=== PATIENT | male | born 1940 | race Caucasian/White ===

== ENCOUNTER 2018-08-10 05:52 | Inpatient (IN) | payer OTHER ==
[~2018-08-10] VITALS: Ht 180.3 cm; Wt 85.9 kg
[2018-08-10] MEDS ORDERED: NITROGLYCERIN 0.4 MG SL TAB SL ONE ×2 (06:00→08:15)
[2018-08-10 06:57] LABS: Basophils # (auto) 0 uL; Basophils % (auto) 0.5 % (0.0-2.0); Eosinophils # (auto) 0.3 uL; Eosinophils % (auto) 4.1 % (0.0-7.0); Hematocrit 43.6 % (41.0-53.0); Hemoglobin 15.3 g/dL (13.5-17.5); Lymphocytes # (auto) 2.1 uL; Lymphocytes % (auto) 33.2 % (10.0-50.0); Mean Corpuscular Hemoglobin 30.3 pg (28.0-32.0); Mean Corpuscular Hgb Conc. 35.1 g/dL (32.0-36.0); Mean Corpuscular Volume 86.4 fL (80.0-100.0); Monocytes # (auto) 0.7 uL; Monocytes % (auto) 10.8 % (0.0-12.0); Neutrophils # (auto) 3.3 uL; Neutrophils % (auto) 51.4 % (37.0-80.0); Nucleated Red Blood Cells % 0.2 %; Platelet Count (auto) 196 10^3/uL (140-450); Red Blood Cells 5.05 10^6/uL (4.5-5.90); Red Cell Distribution Width 13.4 % (11.8-14.3); White Blood Cell 6.4 10^3/uL (4.4-10.8)
[2018-08-10] MEDS ORDERED: ASPirin 81 mg TAB PO ONE ×2 (07:00→10:30)
[2018-08-10] MEDS ORDERED: SODIUM CHLORIDE 0.9% 1,000 ML IV ONE (07:00)
[2018-08-10 07:12] LABS: Albumin 3.8 g/dL (3.4-5.0); BUN/Creatinine Ratio 24.8; Calcium 8.5 mg/dL (8.5-10.1); Magnesium 2.2 mg/dL (1.6-2.6); Potassium 4.3 mmol/L (3.5-5.1)
[2018-08-10 07:17] LABS: Bilirubin, Total 0.6 mg/dL (0.2-1.0)
[2018-08-10 07:39] LABS: INR 1.08 (0.9-1.15); Partial Thromboplastin Time 34.9 sec (23.78-33.04); Prothrombin Time 11.5 sec (9.27-12.13)
[2018-08-10] MEDS ORDERED: MORPHINE SULF INJ 2 MG/ML SYRINGE 1ML ONE (07:49)
[2018-08-10] MEDS ORDERED: ONDANSETRON HCL 4 MG/2 ML VIAL ONE (07:49)
[2018-08-10] MEDS ORDERED: MORPHINE SULF INJ 2 MG/ML SYRINGE 1ML IV ONE (08:00)
[2018-08-10] MEDS ORDERED: ONDANSETRON HCL 4 MG/2 ML VIAL IV ONE (08:00)
[2018-08-10 09:13] LABS: Urine Bacteria NONE SEEN /hpf (None Seen); Urine Blood Negative /uL (Negative); Urine Mucus FEW (None Seen); Urine Specific Gravity 1.022 (1.001-1.035); Urine WBC 1 /hpf (0 - 3)
[2018-08-10] MEDS ORDERED: SODIUM CHLORIDE 0.9% 1,000 ML IV SCH ×2 (10:05→13:45)
[2018-08-10] MEDS ORDERED: MORPHINE SULF INJ 2 MG/ML SYRINGE 1ML IV PRN ×2 (10:15)
[2018-08-10] MEDS ORDERED: TEMAZEPAM 15 MG CAP PO PRN (10:15)
[2018-08-10] MEDS ORDERED: PROMETHAZINE HCL 25 MG/ML 1ML IV PRN (10:15)
[2018-08-10] MEDS ORDERED: LACTULOSE 20Gm/30ML SOLN PO PRN (10:15)
[2018-08-10] MEDS ORDERED: ACETAMINOPHEN 500 MG TAB PO PRN (10:15)
[2018-08-10] MEDS ORDERED: LORazepam 0.5 MG TAB PO PRN (10:15)
[2018-08-10] MEDS ORDERED: HYDROcodone-ACET 5/325MG TAB PO PRN (10:15)
[2018-08-10] MEDS ORDERED: ENOXAPARIN SOD 40 MG/0.4 ML SYRINGE SC ONE (10:30)
[2018-08-10] MEDS ORDERED: METOPROLOL TARTRATE 25 MG TAB PO ONE (10:30)
[2018-08-10] MEDS ORDERED: PANTOPRAZOLE 40 MG TAB PO ONE (10:30)
[2018-08-10] MEDS ORDERED: NITROGLYCERIN 0.2MG/HR TOPICAL PATCH TD ONE (10:30)
[2018-08-10] MEDS: LOSARTAN POTASSIUM 50 MG TAB PO SCH (10:57)
[2018-08-10] MEDS ORDERED: METOPROLOL SUCCINATE XL 50 MG TAB PO SCH (11:00)
[2018-08-10] MEDS: FUROSEMIDE 20 MG TAB PO SCH (11:00)
[2018-08-10 17:00] VITALS: BP 125/67
[2018-08-10] MEDS: TAMSULOSIN HYDROCHLORIDE 0.4 MG CAP PO SCH (18:06)
[2018-08-10] MEDS ORDERED: APIX5TAB OR (18:36)
[2018-08-10] MEDS ORDERED: TAMS0.4C36 PO (18:36)
[2018-08-10] MEDS ORDERED: ISOS1TAB37 PO (18:36)
[2018-08-10] MEDS ORDERED: FURO40TA4 PO (18:36)
[2018-08-10] MEDS ORDERED: ROSU10TA16 PO (18:36)
[2018-08-10] MEDS ORDERED: ASPI-498 OR (18:36)
[2018-08-10] MEDS ORDERED: LOSA50TA26 PO (18:36)
[2018-08-10] MEDS ORDERED: METO25TA62 PO (18:36)
[2018-08-10 22:00] VITALS: BP 113/57
[2018-08-10] MEDS ORDERED: METOPROLOL TARTRATE 25 MG TAB PO SCH (22:00)
[2018-08-10] MEDS: APIXABAN 5 MG TAB PO SCH (23:13)
[2018-08-10] MEDS: ATORVASTATIN 20 MG TAB PO SCH (23:14)
[2018-08-11 05:00] VITALS: BP 118/67
[2018-08-11 07:10] LABS: Cholesterol 108 mg/dL (< 200); HDL Cholesterol 32 mg/dL (40-59); LDL Cholesterol 67 mg/dL (< 100); Triglycerides 188 mg/dL (< 150)
[2018-08-11] MEDS: NITROGLYCERIN 0.4 MG SL TAB SL PRN ×2 (07:16→09:10)
[2018-08-11 09:00] VITALS: BP 115/61
[2018-08-11] MEDS: APIXABAN 5 MG TAB PO SCH ×2 (09:46→22:08)
[2018-08-11] MEDS: NITROGLYCERIN 0.2MG/HR TOPICAL PATCH TD SCH (09:46)
[2018-08-11] MEDS: FUROSEMIDE 20 MG TAB PO SCH (09:47)
[2018-08-11] MEDS: PANTOPRAZOLE 40 MG TAB PO SCH (09:47)
[2018-08-11] MEDS: LOSARTAN POTASSIUM 50 MG TAB PO SCH (09:47)
[2018-08-11] MEDS: ASPirin 81 mg TAB PO SCH (09:47)
[2018-08-11] MEDS ORDERED: ENOXAPARIN SOD 40 MG/0.4 ML SYRINGE SC SCH (10:00)
[2018-08-11] MEDS ORDERED: IODIXANOL 320MG/ML 100ML BTL IV ONE (11:50)
[2018-08-11] MEDS ORDERED: LIDOCAINE 2%HCL (LOCAL ANESTH.) INJ 20ML MDV ONE (11:50)
[2018-08-11] MEDS ORDERED: ANGIOMAX 250 MG VIAL IV ONE (12:13)
[2018-08-11] MEDS ORDERED: SODIUM CHL 0.9% 0 ML ONE (12:13)
[2018-08-11] MEDS ORDERED: fentaNYL CITRATE 100 MCG/2 ML VL ONE (12:13)
[2018-08-11] MEDS ORDERED: MIDAZOLAM HCL 1MG/1ML-2 ML VIAL ONE (12:13)
[2018-08-11 14:00] VITALS: BP 120/63
[2018-08-11 17:00] VITALS: BP 134/69
[2018-08-11] MEDS: TAMSULOSIN HYDROCHLORIDE 0.4 MG CAP PO SCH (17:43)
[2018-08-11 22:00] VITALS: BP 128/66
[2018-08-11] MEDS: ATORVASTATIN 20 MG TAB PO SCH (22:08)
[2018-08-12 05:00] VITALS: BP 107/60
[2018-08-12] MEDS: NITROGLYCERIN 0.4 MG SL TAB SL PRN (07:26)
[2018-08-12 09:00] VITALS: BP 139/71
[2018-08-12] MEDS: PANTOPRAZOLE 40 MG TAB PO SCH (11:22)
[2018-08-12] MEDS: APIXABAN 5 MG TAB PO SCH (11:23)
[2018-08-12] MEDS: ASPirin 81 mg TAB PO SCH (11:23)
[2018-08-12] MEDS: NITROGLYCERIN 0.2MG/HR TOPICAL PATCH TD SCH (11:23)
[2018-08-12] MEDS: LOSARTAN POTASSIUM 50 MG TAB PO SCH (11:23)
[2018-08-12] MEDS: FUROSEMIDE 20 MG TAB PO SCH (11:24)
[2018-08-12 13:00] VITALS: BP 96/56
== END 2018-08-12 14:30 | disposition home or self-care (01) | DRG 287 ==
LOC: ER 05:56 → TELE 05:57 → TELE-CENTR 15:38
PROVIDERS: ADMIT Internal Medicine; ATTEND Internal Medicine
PROC: B2111ZZ Fluoroscopy of Multiple Coronary Arteries using Low Osmolar Contrast (ICD-10-PCS; principal; 2018-08-11)
PROC: B2151ZZ Fluoroscopy of Left Heart using Low Osmolar Contrast (ICD-10-PCS; 2018-08-11)
PROC: 4A023N7 Measurement of Cardiac Sampling and Pressure, Left Heart, Percutaneous Approach (ICD-10-PCS; 2018-08-11)
PROC: B41J1ZZ Fluoroscopy of Other Lower Arteries using Low Osmolar Contrast (ICD-10-PCS; 2018-08-11)
DX: R07.89 Other chest pain (principal); I44.1 Atrioventricular block, second degree; I48.91 Unspecified atrial fibrillation; E78.5 Hyperlipidemia, unspecified; F17.210 Nicotine dependence, cigarettes, uncomplicated; I11.0 Hypertensive heart disease with heart failure; I50.9 Heart failure, unspecified; I73.9 Peripheral vascular disease, unspecified; N40.0 Benign prostatic hyperplasia without lower urinary tract symptoms
CPT/HCPCS: 36415; 71046; 75736; 80053; 80061; 81001; 82550; 83735; 83880; 84443; 84484; 85025; 85379; 85610; 85652; 85730; 86141; 86850; 86900; 86901; 93005; 93458; 94761; 96374; 96375; 99152; A6257; J2250; J2405; Q9967